=== PATIENT | female | born 1980 | race African-American/Black ===

== ENCOUNTER 2018-07-07 08:44 | Observation (INO) | payer OTHER ==
[~2018-07-07] VITALS: Ht 154.9 cm; Wt 73.5 kg
[2018-07-07 09:48] LABS: PLATELET COUNT 307 x10^3mcL (130-400); RED CELL DISTRIBUTION WIDTH 14.3 % (11.5-14.5)
[2018-07-07 09:54] LABS: BASOPHIL % 0 % (0-2)
[2018-07-07 10:00] LABS: CALCIUM 8.8 mg/dL (8.5-10.1); CHLORIDE SERUM 104 mmol/L (98-107); CREATININE SERUM 0.7 mg/dL (0.6-1.0); GFR1 > 60 mL/min; GLUCOSE SERUM 88 mg/dL (74-106); POTASSIUM SERUM 3.9 mmol/L (3.5-5.1); SODIUM SERUM 139 mmol/L (136-145)
[2018-07-07 10:05] LABS: ALBUMIN 3.6 g/dL (3.4-5.0); ALKALINE PHOSPHATASE 47 U/L (46-116); ALT/SGPT 15 U/L (14-59); AST/SGOT 10 U/L (15-37); BILIRUBIN TOTAL 0.7 mg/dL (0.20-1.00); TOTAL PROTEIN, SERUM 7.6 g/dL (6.4-8.2)
[2018-07-07 15:32] VITALS: BP 152/83
[2018-07-07 15:39] VITALS: Ht 154.9 cm; Wt 73.5 kg
[2018-07-07 16:11] VITALS: BP 151/83
[2018-07-07 16:33] VITALS: BP 139/93
[2018-07-07 20:01] VITALS: BP 137/76
[2018-07-08 04:32] VITALS: BP 146/72
[2018-07-08 07:27] LABS: BASOPHIL % 0.7 % (0-2); PLATELET COUNT 311 x10^3mcL (130-400); RED CELL DISTRIBUTION WIDTH 13.1 % (11.5-14.5)
[2018-07-08 07:36] LABS: CALCIUM 8.2 mg/dL (8.5-10.1); CARBON DIOXIDE 26.8 mmol/L (21-32); CHLORIDE SERUM 106 mmol/L (98-107); CREATININE SERUM 0.6 mg/dL (0.6-1.0); GFR1 > 60 mL/min; GLUCOSE SERUM 89 mg/dL (74-106); POTASSIUM SERUM 3.8 mmol/L (3.5-5.1); SODIUM SERUM 140 mmol/L (136-145)
[2018-07-08 08:19] VITALS: BP 136/84
[2018-07-08 11:50] VITALS: BP 136/78
[2018-07-08 16:00] VITALS: BP 141/74
[2018-07-08 19:50] VITALS: BP 137/88
[2018-07-09 04:53] VITALS: BP 122/80
[2018-07-09 09:35] VITALS: BP 142/86
[2018-07-09] MEDS ORDERED: IBUPROFEN400 MG PO (10:03)
[2018-07-09] MEDS ORDERED: NOR10T PO (10:03)
[2018-07-09 10:16] VITALS: BP 142/86
[2018-07-16 04:25] LABS: CK-BB 0 % (0); CK-MB 0 % (0-3); CK-MM 100 % (97-100); MACRO TYPE 1 0 % (Not Observed); MACRO TYPE 2 0 % (Not Observed)
== END 2018-07-09 13:35 | disposition home or self-care (01) | DRG 558 ==
LOC: ED 08:44 → MU 14:09
PROVIDERS: Emergency Medicine; ADMIT Internal Medicine
PROC: 3E0U33Z Introduction of Anti-inflammatory into Joints, Percutaneous Approach (ICD-10-PCS; principal; 2018-07-07)
DX: M75.51 Bursitis of right shoulder (principal); D57.1 Sickle-cell disease without crisis
CPT/HCPCS: 83880; A9577; G0378; J1030; J1644; J1885; J2001; J2270; J7030; Q0092